=== PATIENT | female | born 2000 | race Caucasian/White ===

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

== ENCOUNTER 2021-06-26 16:00 | Outpatient (RCR) | payer OTHER, SELFPAY ==
--- NOTE | 2021-05-30 09:08 | PTOPEVAL ---
PHYSICAL THERAPY EVALUATION AND PLAN OF CARE Thank you for referring Shayna Grier to [facility].? The patient is scheduled to be seen for therapy? _2x/week for 4 weeks. Please review, sign, date and return this plan of care ANTIONE. I agree with and certify that the following plan of care is medically necessary. Referring Physician Date Referring Provider: Everett Alas Evaluation Diagnosis right hip arthroscopy Onset 05/06/2021 Subjective Information right acetabular impingement Query Text:As Reported By Patient/ with labral tear. doing well Family with minimal pain. Minimal pain typically occurs when perform long lever flexion ( SLR). She continues to be non -weight bearing today but we will progress to 505 WB today to hopefuly progress to full WB next week. Self Report Pain Assessment Right Hip(s) Reported Pain Level 2 Pain Description Pinching Pain Score Pain Score 2: Self Report Interventions Used Interventions Used By Clinicians Exercise Lower Extremity Range of Motion General Lower Extremity Range of Motion Gross Lower Extremity Range of Motion no hip external rotation Comments performed today hip flexion to 90deg without pain normal hip extension and internal rotation without pain Lower Extremity Muscle Strength Testing Hip Strength Right Hip Flexion Strength 3- Fair - Hip Extension Strength 3 Fair Hip Abduction Strength 3 Fair Knee Strength Right Knee Flexion Strength 4 Good Knee Extension Strength 4 Good Muscle Length Testing Muscle Length Testing Right Hamstring Length -30 Query Text:(90 - 90 Position) Gait Assessment Gait Assessment Ambulation Assistive Devices Crutches Weight Bearing Status - Left Full Weight Bearing Status - Right Partial Maintains Weight Bearing Status Yes Ambulation Distance 100 Query Text:(Feet) Ambulation Ability Independent Additional Ambulation Comments progressed to 50% WB on RLE today - performed well without pain Rehab Teaching Rehab Teaching Teaching Topic Rehab Teaching Topic Components Diagnosis,Home Program As Pertains To Plan of Care Discussion, Progression Recipient Patient Learning Preferences Demonstration,Discussion,One-
--- NOTE | 2021-06-26 16:29 | PTOPEVAL ---
PHYSICAL THERAPY DISCHARGE NOTE Thank you for referring Shayna Grier to [facility].? Please review, sign, date and return this plan of care ANTIONE. I agree with and certify that the following plan of care is medically necessary. 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 She is going back to school in [place] [facility] to go back to school. No pain. Self Report Self Report Pain Level 0 Pain Score Pain Score 0: Self Report Lower Extremity Range of Motion General Lower Extremity Range of Motion Gross Lower Extremity Range of Motion hip external rotation: at Comments least 30degrees without overpressure hip flexion 120 with mild pain in groin Lower Extremity Muscle Strength Testing Hip Strength Right Hip Flexion Strength 4+ Good + Hip Extension Strength 4- Good - Hip Abduction Strength 4 Good Knee Strength Right Knee Flexion Strength 5 Normal Knee Extension Strength 5 Normal General Exercise General Exercises Side Right Exercise Location hip Exercise Type Active,Stretching Exercise Description reviewed HEP and how to Query Text:Record Sets, Reps, progress strengthening at home Resistance, and Position . She was provided with her rehabilitation protocol to guide her in the next strengthening steps PT Clinical Summary Shayna is a 20 yo female presenting to outpatient physical therapy 7 wks s/p right hip arthroscopy with labral repair. She is demonstrating significantly improved right LE strength and is progressing well toward meeting strength of contralateral side. She is returning to school in [place] [facility] and will continue her rehabilitation program independently. Rehabilitation Potential Excellent Patient/Caregiver's Personal Goals for return to normal Rehabilitation Nani
== END 2021-08-13 11:01 | disposition home or self-care (01) ==
LOC: ANHPT 16:00
PROVIDERS: PCP Pediatrics
DX: Z48.89 Encounter for other specified surgical aftercare (principal); Z98.890 Other specified postprocedural states
CPT/HCPCS: 97110; 97116; 97161

== ENCOUNTER 2021-11-21 09:00 | Outpatient (RCR) | payer OTHER, SELFPAY ==
--- NOTE | 2021-10-29 16:05 | PTOPEVAL ---
PHYSICAL THERAPY INITIAL EVALUATION. Thank you for referring Shayna Grier to [facility].? The patient is scheduled to be seen for therapy? 2x/week for 4 weeks. Please review, sign, date and return this plan of care ANTIONE. I agree with and certify that the following plan of care is medically necessary. Referring Physician Date Attending Provider: Everett Alas *PT Outpatient Evaluation Start: 10/29/21 Evaluation Information Diagnosis L labral repair and femoral debridement Onset 10/03/21 Subjective Information Pt states she had a L labral Query Text:As Reported By Patient/ repair with a femoral Family debridement. Pt states she was non WBing for 2 weeks and has not been given any other restrictions. She ambulates with about ~50% weight bearing with james axially crutches. Pt has this same surgery on her R hip in 04/30. Self Report Pain Assessment Left Hip(s) Reported Pain Level 0 Pain Description Aching Lowest Pain Intensity 0 Greatest Pain Intensity 3 Lower Extremity Range of Motion Gross Lower Extremity Range of Motion can acheive 90 deg of hip Comments flexion and 10 deg of hip extension without pain Lower Extremity Muscle Strength Testing Gross Lower Extremity Strength did not resisted hip flexion this date - able to complete 3 straight leg raises before evident extension lag noted L hip abduction 3+/5 R hip abduction 4+/5 R hip extension 4+/5 R hip extension 3+/5 Muscle Length Testing Left Hamstring Length -30 Right Hamstring Length -30 Palpation Assessment Palpation none reported Balance Assessment 5 Time Sit to Stand Time in Seconds 18 5 Time Sit to Stand Comments without use of UEs, equal weight distribution Gait Assessment Ambulation Assistive Devices Crutches Weight Bearing Status - Left As Tolerated Weight Bearing Status - Right Full Maintains Weight Bearing Status Yes Weight Bearing Comment 50% WBing Ambulation Distance 100 Additional Ambulation Comments Pt ambulates with a 2 point gait pattern with B axillary crutches initially. Able to progress to 2 point gait pattern w
--- NOTE | 2021-11-21 10:40 | PTOPEVAL ---
PHYSICAL THERAPY PROGRESS REPORT AND DISCHARGE SUMMARY. Thank you for referring Shayna Grier to [facility].? The patient is to be discharged from skilled therapy services at this time. Please review, sign, date and return this plan of care ANTIONE. I agree with and certify that the following plan of care is medically necessary. Referring Physician Date Attending Provider: Everett Alas Evaluation Information Diagnosis L labral repair and femoral debridement Onset 10/03/21 Subjective Information Pt states her range of motion Query Text:As Reported By Patient/ including rotation has Family improved a lot. She states if she is sitting down and her knee falls to the side it no longer bother her. She states she is able to sleep on her L side without an increase in pain. She reports she often forgets which side she had surgery on. Pain Assessment Left Hip(s) Reported Pain Level 0 Greatest Pain Intensity 0 Lower Extremity Range of Motion Gross Lower Extremity Range of Motion can acheive 115 deg of active Comments hip flexion and 20 deg of active hip extension without pain R hip supine hip ext/int rot: 30, 40 L hip supine hip ext/int rot:30, 20 - without pain Lower Extremity Muscle Strength Testing Gross Lower Extremity Strength able to complete 7 straight leg raises before extension lag and mild reports of pinching in her hip L hip abduction 5/5 R hip abduction 5/5 R hip extension 5/5 R hip extension 5/5 Palpation Assessment Palpation none reported Balance Assessment 5 Time Sit to Stand Comments Intiailly: 18s without use of Query Text:Normative Data: If Greater UEs, equal weight distribution Than 15 Seconds, 74% Increase Risk for 11/21/21: 10s without the use Recurrent Falls of UEs, equal weight distribution Gait Assessment Ambulation Assistive Devices None Gait Pattern No Deviations/Normal Stair Climbing Assessment Stair Climbing Assistive Devices None Technique Alternating Steps Stair Climbing Direction Both Up and Down Stair Climbing Comments no notable deviations, pt able to ascend and descend stairs with a reciprocal pattern with good ecce
== END 2021-11-21 14:44 | disposition home or self-care (01) ==
LOC: ANHPT 09:00
PROVIDERS: PCP Pediatrics
DX: Z48.89 Encounter for other specified surgical aftercare (principal)
CPT/HCPCS: 97110; 97112; 97140; 97161

== ENCOUNTER 2023-07-23 11:29 | Emergency (ER) | payer OTHER, SELFPAY ==
[2023-07-23 11:39] VITALS: BP 110/63; PULSE 81; RESP 18; TEMP 36.8; O2SAT 100
--- NOTE | 2023-07-23 12:12 | ED.URI ---
HPI - URI/Sore Throat General Chief Complaint: Upper Respiratory Infection Stated Complaint: Sore Throat/Ears Irritation Source: patient, RN notes reviewed and old records reviewed Mode of arrival: ambulatory Limitations: no limitations History of Present Illness HPI Narrative: 22-year-old female presents to [facility] with complaint of sore throat for 5 days. Patient endorses that on Thursday she had 1 episode generalized myalgias, chills and emesis x1. Patient endorses intermittent subjective fever. Patient able to tolerate fluids by mouth. Related Data Home Medications Medication Instructions Recorded Confirmed sertraline 50 mg tablet 50 mg PO DAILY 07/23/23 07/23/23 Allergies Allergy/AdvReac Type Severity Reaction Status Date / Time No Known Allergies Allergy Mild Verified 07/23/23 11:50 Review of Systems Review of Systems: All systems reviewed & are unremarkable except as noted in HPI and below Constitutional: Constitutional: Reports no additional constitutional complaints and Reports fever(s) ( subjective, intermittent) Eyes: Eyes: Reports no additional eye complaints ENT: Reports as per HPI, Reports dizziness ( 1 episode on Thursday with chills and emesis x1), Denies headache(s), Denies hoarseness and Reports sore throat Cardiovascular: Cardiovascular: Reports no additional cardiovascular complaints, Denies chest pain and Denies dyspnea Respiratory: Respiratory: Reports no additional respiratory complaints, Denies cough and Denies dyspnea Musculoskeletal: Musculoskeletal: Reports no additional musculoskeletal complaints Neurologic: Reports system reviewed and no additional complaints, except as documented Psychiatric: Psychiatric: Reports no additional psychiatric complaints PMFSH Social History Social History Smoking status: Never smoker Comments At the time of my signature, I reviewed and agree with the nursing past medical, surgical, social, and family history. There is no relevant family history pertinent to the patient complaint. Exam Const: General: cooperative, healthy appearing, comfortable, no acute distress, alert and well nourished Nutritional Appearance: well nourished Orientation/consciousness: patient oriented x3 Limitations: no limitations HENMT: Head: normal to inspection Ears: external ears normal and TM abnormal with fluid behind the TM bilateral Face/Nose/Sinus: Normal external nose present, Normal nares present, normal facial exam, No erythema and No edema Face and sinus: normal facial exam, no erythema and no edema Mouth: Yes Normal oral and palatal mucosa present Throat: posterior oropharynx abnormal erythema Eyes: General: appearance normal, both eyes and all related structures Neck: Neck: normal visual inspection, full ROM and no meningeal signs Lymphatic: no lymphadenopathy noted and no lymphedema noted Chest: Chest palpation & inspection: normal inspection of the chest Resp: Effort & Inspection: normal respiratory effort and able to speak in complete sentences Auscultation: clear to auscultation bilaterally Cardio: Jugular venous distension: no JVD Rate: regular rate Rhythm: regular rhythm Back/Spine/Pelvis: Cervical Spine: cervical ROM normal Skin: General skin exam: normal color, no rashes or lesions noted and turgor normal Neuro: General: patient oriented x3, gait normal, moves all extremities and no meningeal signs Speech: normal speech Gait exam (Neuro): Normal gait present Extrem: General: normal to inspection, full ROM and capillary refill normal Psych: Appearance: grossly normal and well kempt Course Course Emergency Course: Some parts of this dictation were generated by voice recognition software and may contain typographical and/or grammatical inaccuracies. Level of Care: Express Care Visit Vital Signs Vital signs: Vital Signs Temperature 36.8 C 07/23/23 11:39 Pulse Rat
== END 2023-07-23 12:30 | disposition home or self-care (01) ==
PROVIDERS: Emergency Provider Nurse Practitioner Family
DX: J06.9 Acute upper respiratory infection, unspecified (principal); Z20.822 Contact with and (suspected) exposure to COVID-19; F41.9 Anxiety disorder, unspecified; F32.A Depression, unspecified
CPT/HCPCS: 87081; 87426; 87804; 87880; 99213; G0463

== ENCOUNTER 2024-07-07 10:22 | Emergency (ER) | payer OTHER, SELFPAY ==
--- NOTE | 2024-07-07 10:24 | ED.FEMALEGU ---
HPI - Female Genitourinary General Chief complaint: Urogenital-Female Stated complaint: UTI Time Seen by Provider: 07/07/24 10:22 Source: patient Mode of arrival: ambulatory Limitations: no limitations History of Present Illness HPI Narrative: Shayna is a 23-year-old female patient presenting to the clinic today with complaints of possible urinary tract infection. She reports she has been having burning with urination, frequency and urgency for the past 3-4 days. Symptoms have been worse over the last 48 hours. Has taken azo to try to treat her symptoms. Reports some clear vaginal discharge without odor. Last menstrual period was June 27. Has IUD in place. No concern for sexually transmitted infection. Denies any fevers, chills, body aches, back pain, or abdominal pain. Related Data Home Medications ?Medication ?Instructions ?Recorded ?Confirmed ?Last Taken ?Type sertraline 50 mg tablet 50 mg PO DAILY 07/23/23 08/04/23 Unknown History levonorgestrel 17.5 mcg/24 hr (up 1 device intrauterine ONCE 08/04/23 08/04/23 Unknown History to 5 yrs) 19.5mg intrauterine device (Kyleena) Allergies Allergy/AdvReac Type Severity Reaction Status Date / Time No Known Allergies Allergy Mild Verified 07/07/24 10:33 Review of Systems Review of Systems: Pertinent positives per HPI. Patient denies any fever, chills, rash, headache, visual changes, dizziness, cough, shortness of breath, chest pain, palpitations, nausea, vomiting, diarrhea, constipation, abdominal pain. [facility] Past Medical History Medical History Anxiety Encounter for IUD insertion kyleena insertion - 09/2021 Surgical History Surgical History History of hip surgery bilateral Family History Family History Father Heart failure Social History Social History Smoking status: Never smoker Alcohol intake: current Alcohol use details: soically Substance use: never Substance use type: does not use Do You Feel Safe in your Home?: Yes Lack of Transportation: No Lack of Food: Never True Current Housing: I Have Housing Concerned About Future Housing: No Difficulty Paying Gas/Electric Bills: No Difficulty Paying for Meds: No Currently Unemployed: No Education: Bachelor's Degree Difficulty w/ Childcare or Family Care: No Living arrangements: with family Occupation/Education: student Additional occupation/education comments: student Gender identity (if verbalized by the patient): Female Sexual Orientation (if Verbalized by the Patient): Straight or Heterosexual Comments At the time of my signature, I reviewed and agree with the nursing past medical, surgical, social, and family history. There is no relevant family history pertinent to the patient complaint. Exam Narrative: General: Well-developed, well nourished, in no apparent distress. Head: Normocephalic, atraumatic. Cardio: Regular rate and rhythm, s1 and s2 normal, no murmur appreciated. Resp: Clear to auscultation bilaterally, no rhonchi, rales, wheezing or rubs. Abdomen: Soft, pliable, bowel sounds present in all quadrants, non-tender to palpation, no organomegly, no CVAT tenderness. : Deferred Course Course Emergency Course: Portions of this record may have been created with voice recognition software. Level of Care: Express Care Visit Vital Signs Vital signs: Vital Signs Temperature 36.6 C 07/07/24 10:31 Pulse Rate 71 07/07/24 10:31 Respiratory Rate 18 07/07/24 10:31 Blood Pressure 124/78 07/07/24 10:31 Pulse Oximetry 99 07/07/24 10:31 Oxygen Delivery Room Air 07/07/24 10:31 Temperature 36.6 C 07/07/24 10:31 Pulse Rate 71 07/07/24 10:31 Respiratory Rate 18 07/07/24 10:31 Blood Pressure 124/78 07/07/24 10:31 Pulse Oximetry 99 07/07/24 10:31 Oxygen Delivery Room Air 07/07/24 10:31 Vital signs reviewed MDM - Female Genitourinary MDM Narrative Medical decision making narrative: At the time of visit patient is resting comfortably on the exam table. Patient appears to be nontoxic. Labs: Urine culture was sent Plan: Patient taken the azo for her symptoms and this will skewed the urine dip results. We will send urine for culture. Will place patient on Macrobid as this appears to be a simple UTI. Also send and Diflucan as patient reports that she gets yeast infections from taking antibiotics. Supportive measures were discussed with the patient and they voiced understanding discharge instructions and agrees to treatment plan. Return precautions reviewed Differential Diagnosis Differential diagnosis: Likely urinary tract infection and cystitis Discharge Plan Discharge Clinical Impression: Urinary tract infection Qualifiers: Urinary tract infection type: acute cystitis Hematuria presence: without hematuria Qualified Code(s): N30.00 - Acute cystitis without hematuria Patient Disposition: Home, Self-Care Condition: Stable Instructions: Antibiotic Form, Urinary Tract Infection in Women (ED) Additional Instructions: UA skewed due to taking AZO We will send urine for culture Take Macrobid as prescribed Take Diflucan as needed for vaginal yeast infection Increase fluids and stay well hydrated Wipe front to back. May use wet wipes. Avoid tub baths If sexually active- pee before and after intercourse. Wear cotton panties Avoid tight clothing up against the genitals Follow up with your PCP in 1 week if symptoms persist. Patient Language: [place] Prescriptions: New fluconazole 150 mg tablet 150 mg PO ONCE Qty: 2 0RF Rx Instructions: as a single dose. May repeat in 72 hours if needed. nitrofurantoin monohyd/m-cryst [Macrobid] 100 mg capsule 100 mg PO Q12H 5 Days Qty: 10 0RF Rx Instructions: must administer with a meal/food No Action sertraline 50 mg tablet 50 mg PO DAILY Kyleena 17.5 mcg/24 hrs (5 yrs) 19.5 mg intrauterine device 1 device intrauterine ONCE Rx Instructions: as a single dose Follow-up/Referrals: UNKNOWN,DOCTOR [Primary Care Provider] - Time of Disposition: 10:38 Quality NIHSS Nursing Documentation ED NIHSS nursing documentation: reviewed/agree
[2024-07-07 10:31] VITALS: BP 124/78; PULSE 71; RESP 18; TEMP 36.6; O2SAT 99
== END 2024-07-07 10:41 | disposition home or self-care (01) ==
PROVIDERS: Emergency Provider Nurse Practitioner Family
DX: N30.00 Acute cystitis without hematuria (principal); F41.9 Anxiety disorder, unspecified
CPT/HCPCS: 87086; 99213; G0463

== ENCOUNTER 2024-10-13 09:37 | Outpatient (CLI) | payer OTHER, SELFPAY ==
--- NOTE | ~2024-10-13 | XR_ITS ---
XR abdomen/kub 1V 10/13/2024 09:56 Indication: Renal stone. Right upper quadrant pain. Procedure: KUB Comparison: 12/21/2019 Findings: Bowel gas pattern nonobstructive. There is an IUD in the pelvis. No renal/ureteral stones i dentified. There is a left-sided pelvic phlebolith. No acute osseous abnormality. Impression: 1: No acute abdominal abnormality. Reviewed, dictated and finalized at location A. Impression: 1: No acute abdominal abnormality.
--- OUTSIDE RECORDS SUMMARY | 2024-10-13 10:26 | XMS_ITS | Clinical Summary ---
Author Organization [facility] Address [facility] [place] [address] Care Team Providers Care Road Manager Name Role Phone Unavailable Primary Care Provider Unavailabl e Allergies No known active allergies Medications No known medications Active Problems No known active problems Encounters Date Type Department Care Team Description 10/04/2024 External Device Data [facility] ABSTRACTION Provider, Abstract 09/30/2024 External Device Data [facility] ABSTRACTION Provider, Abstract 09/29/2024 External Device Data [facility] ABSTRACTION Provider, Abstract 09/28/2024 External Device Data [facility] ABSTRACTION Provider, Abstract 08/23/2024 External Device Data [facility] ABSTRACTION Provider, Abstract 07/27/2024 External Device Data [facility] ABSTRACTION Provider, Abstract 07/27/2024 External Device Data [facility] ABSTRACTION Provider, Abstract 07/16/2024 External Device Data [facility] ABSTRACTION Provider, Abstract 07/13/2024 External Device Data [facility] ABSTRACTION Provider, Abstract from Last 3 Months Immunizations Immunization Administration Dates Next Due Skin Test TB 04/10/2024,01/27/2024,01/19/2024 Social History Tobacco Use Types Packs/Day Years Used Date Smoking Tobacco: Never Smokeless Tobacco: Never Tobacco Cessation:Counseling Given: No Comments No Sex and Gender Information Value Date Recorded Sex Assigned at Not on file Legal Sex Female 5:51 PM CDT Gender Identity Not on file Sexual Orientation Not on file Last Filed Vital Signs Vital Sign Reading Time Taken Comments Blood Pressure 120/82 01/27/2024 3:00 PM CDT Pulse 81 01/27/2024 3:00 PM CDT Temperature 36.6 C (97.8 F) 01/27/2024 3:00 PM CDT Respiratory Rate 16 01/27/2024 3:00 PM CDT Oxygen Saturation 99% 01/27/2024 3:00 PM CDT Inhaled Oxygen Concentration - - Weight 74.8 kg (165 lb) 01/27/2024 3:00 PM CDT Height 177.8 cm (5' 10) 01/27/2024 3:00 PM CDT Body Mass Index 23.68 01/27/2024 3:00 PM CDT Plan of Treatment Health Maintenance Due Date Last Done Comments CHLAMYDIA SCREENING (ANNUAL) 11-24 YEARS 11/18/2011 HPV VACCINES (1 - 3-dose series) 11/18/2015 DTAP/TDAP/TD VACCINES (1 - Tdap) 11/18/2019 HEPATITIS B VACCINES (1 of 3 - 19+ 3-dose series) 11/08 CERVICAL CANCER SCREENING 2021 HPV/Cotest (21-29) 2021 PAP SMEAR 2021 INFLUENZA VACCINE (#1) 2023 Insurance [place] [id number] [facility] CHOICE [id number] [facility] CHOICE [id number]
--- OUTSIDE RECORDS SUMMARY | 2024-10-13 10:26 | XMS_ITS | Patient Health Record ---
Author Organization [facility] Billing Info Address [address] [place], [place] [address] Care Team Providers Care Salt [employer] Name Role Phone TEGAN FIGUEROA Primary Care Provider Allergies No Known Allergies Reason For Referral No Information Medications Medication SIG (Take, Route, Frequency, Duration) Notes Start Date End Date Status Mirena (52 MG) 20 MCG/DAY as directed Intrauterine Placed in 2021 Active Zoloft 50 MG 1 tablet Orally Once a day for 90 days 12/01/2022 Active Immunizations Vaccine Route Administration Date Status Comme nts zCOVID-19 (Keron) 18+yrs, NO PRES Unknown 09/14/2020 Administered Social History Tobacco Use: Social History Observation Description Date Details (start date - stop date) Never Smoker NA - NA Tobacco Status: Question Answer Notes Patient is a never smoker Problems Problem Type SNOMED Code ICD Code Onset Dates Problem Status W/U Status Risk Notes Problem 89121294 MING (generalized anxiety disorder) (F41.1) Active confirmed Problem 56856698 Kidney stone (N20.0) Active confirmed Plan Of Treatment No Information Insurance Providers Payer Name Payer Address Payer Phone Subscriber Number Group Number Insured Name Patient Relationship to Insured Coverage Start Date Coverage End Date [employer] [address] [address] [facility] [place], [place] [id number] Sara Grier Child - Insured has Financial Responsibility 3 3 Medical (General) History Medical History History ICD Code depression and anxiety Surgical History Surgery Date(Month/Year) Orthoepic of both hip 04/2021 and 09/2021
== END 2024-10-13 09:38 | disposition home or self-care (01) ==
PROVIDERS: PCP Family Medicine; Visit Provider Physician Assistant
DX: N20.0 Calculus of kidney (principal)
CPT/HCPCS: 74018

== ENCOUNTER 2024-11-07 10:00 | Outpatient (RCR) | payer OTHER, SELFPAY ==
--- NOTE | 2024-10-04 09:56 | OPREHPOC ---
Outpatient Therapy Plan of Care This is a Multidisciplinary Plan of Care that may contain components documented by all disciplines (PT, OT, and ST.) PT Problem 1 PT Problem #1 Knowledge Deficit PT Goal 1 Goal / Goal Update 1* independent with HEP 2* correct body mechanics and posture Target Visit 8 PT Problem 2 PT Problem #2 Pain PT Goal 1 Goal / Goal Update * pt report pain rating at worst of 4/10 in bilateral hips Target Visit 8 PT Problem 3 PT Problem #3 Impaired Strength PT Goal 1 Goal / Goal Update increase strength of R and L hips to improve stability to hip joint 1* extension 4+/5 2* abduction 4+/5 3* ER 4+/5 Target Visit 8 PT Problem 4 PT Problem #4 Impaired Flexibility PT Goal 1 Goal / Goal Update increase hamstring flexibility to decrease posterior pull on hips: supine SLR to 55' 1* 4 2* L Target Visit 8
--- NOTE | 2024-10-04 09:56 | PTOPEVAL1 ---
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 Her history includes bilateral arthroscopic surgery on hips for labral tear and removal of bone spurs in 2020 and 2021. She has had gradual increase in pain with more sitting and decreased activity with college. Pain is increased with sitting and LE functional scale rating of 16% limitation in activity level. With the evaluation: she has decreased hamstring flexibility and weakness of bilateral hip extension, abduction and ER motions. Skilled PT services are indicated for modalities PRN for pain and therapeutic exercises to increase hip strength and hamstring flexibility with education for posture and HEP. Plan of Care Interventions Electrical Stimulation,Hot Pack/Cold Pack,Manual Therapy,Neuro Re-education,Patient/Caregiver Education,Therapeutic Activities,Therapeutic Exercise,Ultrasound,Other Other Interventions taping PT Services Indicated Yes Treatment Frequency and 1-2x/wk for 8 visits Duration These treatments will address the objective and functional deficits as defined above. The patient will be advanced safely and appropriately in order for the patient to progress towards his/her prior level of function. Additional exercises will be introduced and as well as a comprehensive home exercise program upon discharge, if needed, ?to ensure carryover of functional gains achieved in the clinic. This treatment plan has been reviewed and agreement upon by the patient.
--- NOTE | 2024-11-07 10:55 | OPREHPOC ---
Outpatient Therapy Plan of Care This is a Multidisciplinary Plan of Care that may contain components documented by all disciplines (PT, OT, and ST.) PT Problem 1 PT Problem #1 Knowledge Deficit PT Goal 1 Goal / Goal Update 1* independent with HEP 2* correct body mechanics and posture 25 d/c goals met Target Visit 8 Progress Met PT Problem 2 PT Problem #2 Pain PT Goal 1 Goal / Goal Update * pt report pain rating at worst of 4/10 in bilateral hips 11-07-25 d/c goal met Target Visit 8 Progress Met PT Problem 3 PT Problem #3 Impaired Strength PT Goal 1 Goal / Goal Update increase strength of R and L hips to improve stability to hip joint 1* extension 4+/5 2* abduction 4+/5 3* ER 4+/5 25 d/c goals met Target Visit 8 Progress Met PT Problem 4 PT Problem #4 Impaired Flexibility PT Goal 1 Goal / Goal Update increase hamstring flexibility to decrease posterior pull on hips: supine SLR to 55' 1* 4 2* L 25 d/c goals met Target Visit 8 Progress Met
--- NOTE | 2024-11-07 10:55 | PTOPDC ---
Assessment and note entered by Rossi Figueredo, PT Assessment Status Discharge ICD-10 Condition Codes (PT) Pain in right hip M25.551,Pain in left hip M25.552 Onset about 6 months Subjective Information am doing better-- less pain, and occur less often; exercises are challenging; sitting time is about the same, but when stand up and start to walk, the pain does not last as long; ready to be discharged; Reported Pain Level Pain Score Self Report Additional Pain Score Comments pain range in the past week 0-3/10; lateral hips, not into thighs; sitting tolerance varies, usually 45-60 minutes at most; Assessment PT Clinical Summary Shayna has received 8 PT sessions. Compared to the initial evaluation: pain rating from 0-8/10 to 0-3/10; sitting tolerance is about the same, but less pain duration with initial standing and walking; self assessment with LE functional scale rating from 16 to 6% limitation in activity level; increase strength of trunk and hips; increase flexibility of hamstrings; education completed for HEP, posture and body mechanics. The goals were achieved. Discharge PT services. She is to continue with her HEP. Plan of Care PT Services Indicated No
== END 2024-11-07 13:11 | disposition home or self-care (01) ==
LOC: ANHPT 10:00
PROVIDERS: PCP Family Medicine; Visit Provider Family Medicine
DX: S73.192S Other sprain of left hip, sequela (principal); M25.551 Pain in right hip; M25.552 Pain in left hip
CPT/HCPCS: 97110; 97140; 97161; 97530